=== PATIENT | male | born 1995 | race Caucasian/White ===

== ENCOUNTER → 2021-05-22 14:47 | Outpatient (BNVA) | payer MEDICAID, SELFPAY | PROVIDERS: PCP Internal Medicine; Referring Provider Internal Medicine; Visit Provider Surgery | DX: R19.8 Other specified symptoms and signs involving the digestive system and abdomen (principal); E66.01 Morbid (severe) obesity due to excess calories | CPT/HCPCS: 99212 ==

== ENCOUNTER 2021-08-13 08:20 | Emergency (ER) | payer MEDICAID, SELFPAY ==
[2021-08-13 08:21] VITALS: BP 144/88; PULSE 94; RESP 17; TEMP 36.6; O2SAT 98; BMI 50.8
[2021-08-13 08:59] LABS: Strep A Nucleic Acid Negative (Negative)
[2021-08-13 09:08] LABS: COVID-19 Test Negative (Negative); IDNOW Serial# 16C4AD1C; Influenza A Negative (Negative); Influenza B2 Negative (Negative)
--- NOTE | 2021-08-13 09:55 | ED.GENADULT ---
HPI - General Adult General Chief complaint: General Medical Stated complaint: Sore throat/Earache Time Seen by Provider: 08/13/21 08:39 Related Data Home Medications Medication Instructions Recorded Confirmed lisinopril 20 mg tablet 20 mg PO BID 05/22/21 05/22/21 lisinopril 20 1 tab PO DAILY 05/22/21 05/22/21 mg-hydrochlorothiazide 12.5 mg tablet sertraline 100 mg tablet 100 mg PO DAILY 05/22/21 05/22/21 Previous Rx's Medication Instructions Recorded amoxicillin 875 mg-potassium 1 tab PO BID 10 Days #20 tab 08/13/21 clavulanate 125 mg tablet Allergies Allergy/AdvReac Type Severity Reaction Status Date / Time No Known Allergies Allergy Unverified 05/22/21 15:55 [No Known Allergies*] Review of Systems Constitutional: Constitutional: Denies body ache(s), Denies chills, Denies fatigue, Denies fever(s), Denies headache(s), Denies malaise and Denies weakness Eyes: Eyes: Denies diplopia ENT: Denies vertigo, Denies dizziness, Reports otalgia, Denies headache(s), Reports post nasal drip, Denies sinus pain, Denies sinus pressure and Reports sore throat Cardiovascular: Cardiovascular: Denies chest pain, Denies syncope, Denies leg edema, Denies lightheadedness, Denies Loss of Consciousness, Denies palpitations and Denies dyspnea Respiratory: Respiratory: Denies chest congestion, Denies cough and Denies dyspnea Gastrointestinal: Gastrointestinal: Denies abdominal pain, Denies hematochezia, Denies constipation, Denies diarrhea and Denies vomiting Musculoskeletal: Musculoskeletal: Reports no additional musculoskeletal complaints Neurologic: Denies confusion, Denies vertigo, Denies dizziness, Denies syncope, Denies headache(s) and Denies weakness Psychiatric: Psychiatric: Denies anxiety, Denies confusion and Denies depression Endocrine: Endocrine: Denies fatigue and Denies palpitations PMFSH Past Medical History Medical History Hypertension Morbid obesity Umbilical discharge Surgical History No pertinent past surgical history Family History Family History Paternal Grandfather Prostate cancer Colon cancer Colon polyps Social History Social History (System 05/22/21 @ 15:55 by Hanane Santiago) Patient Tobacco Use Status: Never used Tobacco Advance Directives: No Advance Directives Information Provided: No Physical Exam ED Vital Signs: Vital Signs - 24 hr 08/13/21 08:21 Temperature 98 F Pulse Rate 94 Respiratory Rate 17 Blood Pressure 144/88 H Pulse Oximetry 98 BMI result Body Mass Index 50.8 Const General: no acute distress, alert and awake; No confusion Nutritional Appearance: obese Orientation/consciousness: patient oriented x3 and No confusion Limitations: no limitations HENMT Head: Yes normal to inspection, Yes normocephalic and Yes atraumatic Ears: hearing grossly normal bilaterally, EAC's normal, TM abnormal (Right) bulging on the right, erythematous and with loss of landmarks and unable to visualize TM (Cerumen impaction) on the left General nose exam: Normal external nose present and Normal nares present Face and sinus: Yes normal facial exam and Yes sinuses nontender Mouth: Normal oral and palatal mucosa present and moist mucous membranes Throat: Yes posterior oropharynx normal and Yes postnasal drainage Eyes Pupils: Equal, round and reactive pupils present EOM: EOMs intact bilaterally Neck Neck: Yes normal visual inspection, Yes full ROM, Yes no lymphadenopathy, Yes no meningeal signs, Yes trachea midline and Yes supple Resp Effort & Inspection: normal respiratory effort and able to speak in complete sentences Auscultation: clear to auscultation bilaterally, no crackles, no rales, no rhonchi and no wheezes Cardio Rate: regular rate Rhythm: regular rhythm Skin General skin exam: no rashes or lesions noted Neuro General: patient oriented x3, no meningeal signs and No confusion Cranial nerves: Yes Equal, round and reactive pupils present Extrem General: Yes normal to inspection, Yes full ROM and Yes capillary refill normal Psych Appearance: grossly normal Mental Status: mental status grossly normal Speech and movement: Normal speech and movement present Course Course Course Narrative: 25-year-old male presents with right ear pain and sore throat that started yesterday. On exam, patient has cerumen impaction left ear, has right TM erythema and bulging. Oropharynx shows mild erythema and postnasal drip. COVID, strep, flu all negative. Will treat right otitis media with Augmentin Counseled Tylenol and ibuprofen for pain. Gave return precautions, all patient's questions were answered. Medical Decision Making Lab Data Labs: Lab Results 08/13/21 08/13/21 08/13/21 Range/Units 08:41 08:41 08:41 COVID-19 ([facility]) Negative (Negative) COVID-19 Clin Com See Note Influenza Type A ([facility]) Negative (Negative) Influenza Type B ([facility]) Negative (Negative) Influenza A & B Note See Note S. pyogenes GrpA [facility] Negative (Negative) Discharge Plan Discharge Clinical Impression: Acute otitis media, right Patient Disposition: Home, Self-Care Instructions: Ear Infection (ED) Additional Instructions: Please take antibiotics as prescribed. Please alternate Tylenol and ibuprofen for pain. Please return to emergency room for any new or concerning symptoms. The Prescriptions: New amoxicillin-pot clavulanate 875-125 mg tablet 1 tab PO BID 10 Days Qty: 20 0RF No Action lisinopril-hydrochlorothiazide 20-12.5 mg tablet 1 tab PO DAILY 0RF sertraline 100 mg tablet 100 mg PO DAILY 0RF lisinopril 20 mg tablet 20 mg PO BID 0RF Interventions: ED Discharge Assessment Last Done: 08/13/21 10:10 Discharge Date/Time: 08/13/21 10:11
== END 2021-08-13 10:11 | disposition home or self-care (01) ==
PROVIDERS: Emergency Provider Emergency Medicine; PCP Internal Medicine
DX: H66.91 Otitis media, unspecified, right ear (principal); H92.01 Otalgia, right ear; J02.9 Acute pharyngitis, unspecified; Z20.822 Contact with and (suspected) exposure to COVID-19; Z79.899 Other long term (current) drug therapy
CPT/HCPCS: 87502; 87635; 87651; 99283

== ENCOUNTER 2022-06-07 11:16 | Emergency (ER) | payer MEDICAID, SELFPAY ==
--- NOTE | ~2022-06-07 | XR_ITS ---
EXAMINATION: XR CHEST CLINICAL INFORMATION: Chest pain. COMPARISON: 12/20/2016 chest radiographs. TECHNIQUE: 2 views of the chest were obtained. FINDINGS: No significant abnormality is noted involving the heart, lungs, mediastinum, bony thorax or soft tissues. XR/XR chest 2V IMPRESSION: No acute cardiopulmonary process.
--- NOTE | 2022-06-07 11:29 | ECG_ITS ---
Test Reason : chest pain Blood Pressure : / mmHG Vent. Rate : 088 BPM Atrial Rate : 088 BPM P-R Int : 158 ms QRS Dur : 086 ms QT Int : 330 ms P-R-T Axes : 053 -05 021 degrees QTc Int : 399 ms Normal sinus rhythm Normal ECG No previous ECGs available Referred By: Generic ED Physician Electronically Signed By:Kade Mcdaniel
[2022-06-07 11:43] VITALS: BP 155/83; PULSE 92; RESP 19; TEMP 36.6; O2SAT 98; BMI 52.0
--- NOTE | 2022-06-07 11:44 | ED_ITS ---
HPI - Chest Pain General Chief Complaint: Chest Pain <CECILIA Louis - Last Filed: 06/07/22 11:47> Stated Complaint: heart pain past few days. sent by DR <CECILIA Louis - Last Filed: 06/07/22 11:47> Time Seen by Provider: 06/07/22 16:35 <CECILIA Louis - Last Filed: 06/07/22 11:47> Source: patient <Ashwini Green NP - Last Filed: 06/07/22 17:43> Mode of arrival: ambulatory <Ashwini Green NP - Last Filed: 06/07/22 17:43> Limitations: no limitations <Ashwini Green NP - Last Filed: 06/07/22 17:43> History of Present Illness HPI narrative: 26-year-old male with a history of obesity, hypertension, anxiety presents the ER with complaints of left-sided chest pain intermittent for the last 3-4 days. Pain occurs at rest. Pain is sharp and lasts several seconds and then resolved. There is no associated vomiting, diaphoresis, dizziness, palpitati ons, cough, fever, shortness of breath, leg swelling or leg pain. No recent travel or sick contact. No family history of DVT, PE, sudden cardiac . <Ashwini Green NP - Last Filed: 06/07/22 17:43> Related Data Home Medications: Home Medications Medication Instructions Recorded Confirmed lisinopril 20 mg tablet 20 mg PO BID 05/22/21 05/22/21 lisinopril 20 1 tab PO DAILY 05/22/21 05/22/21 mg-hydrochlorothiazide 12.5 mg tablet sertraline 100 mg tablet 100 mg PO DAILY 05/22/21 05/22/21 Previous Rx's Medication Instructions Recorded amoxicillin 875 mg-potassium 1 tab PO BID 10 days #20 tabs 08/13/21 clavulanate 125 mg tablet <CECILIA Louis - Last Filed: 06/07/22 11:47> Allergies/Adverse Reactions: Allergies Allergy/AdvReac Type Severity Reaction Status Date / Time No Known Allergies Allergy Verified 06/07/22 11:48 [No Known Allergies*] <CECILIA Louis - Last Filed: 06/07/22 11:47> Review of Systems Review of Systems: Yes all other systems are reviewed and are negative <Ashwini Green NP - Last Filed: 06/07/22 17:43> Constitutional: Constitutional: Reports no additional constitutional complaints, Denies body ache(s), Denies chills, Denies fever(s), Denies headache(s) and Denies weakness <Ashwini Green STAFF DEVELOPMENT COORDINATOR RN - Last Filed: 06/07/22 17:43> Eyes: Eyes: Reports no additional eye complaints and Denies change in vision <Ashwini Green STAFF DEVELOPMENT COORDINATOR RN - Last Filed: 06/07/22 17:43> ENT: Reports system reviewed and no additional complaints, except as documented, Denies dizziness, Denies headache(s), Denies nasal congestion, Denies nasal discharge and Denies neck pain <Ashwini Green STAFF DEVELOPMENT COORDINATOR RN - Last Filed: 06/07/22 17:43> Cardiovascular: Cardiovascular: Reports no additional cardiovascular com plaints, Reports chest pain, Denies leg edema and Denies dyspnea <Ashwini Green STAFF DEVELOPMENT COORDINATOR RN - Last Filed: 06/07/22 17:43> Respiratory: Respiratory: Reports no additional respiratory complaints, Denies cough and Denies dyspnea <Ashwini Green STAFF DEVELOPMENT COORDINATOR RN - Last Filed: 06/07/22 17:43> Gastrointestinal: Gastrointestinal: Reports no additional gastrointestinal complaints, Denies abdominal pain, Denies diarrhea, Denies nausea and Denies vomiting <Ashwini Green STAFF DEVELOPMENT COORDINATOR RN - Last Filed: 06/07/22 17:43> Genitourinary: Genitourinary: Denies urinary incontinence <Ashwini Green STAFF DEVELOPMENT COORDINATOR RN - Last Filed: 06/07/22 17:43> Musculoskeletal: Musculoskeletal: Reports no additional musculoskeletal complaints, Denies back pain, Denies arthralgias, Denies joint swelling, Denies neck pain, Denies numbness and Denies tingling <Ashwini Green STAFF DEVELOPMENT COORDINATOR RN - Last Filed: 06/07/22 17:43> Integumentary/Breasts: Skin/Breast: Reports system reviewed and no additional complaints, except as docu and Denies rash <Ashwini Green STAFF DEVELOPMENT COORDINATOR RN - Last Filed: 06/07/22 17:43> Neurologic: Reports system reviewed and no additional complaints, except as documented, Denies Abnormal speech present, Denies dizziness, Denies headache(s), Denies numbness, Denies tingling and Denies weakness <Ashwini Green NP - Last Filed: 06/07/22 17:43> PMFSH Past Medical History Attestation statement: The following information was validated with the patient. <Ashwini Green NP - Last Filed: 06/07/22 17:43> Source: old records reviewed and nursing notes reviewed <Ashwini Green NP - Last Filed: 06/07/22 17:43> Medical History: Medical History Hypertension Morbid obesity Umbilical discharge <CECILIA Louis - Last Filed: 06/07/22 11:47> Surgical History: Surgical History No pertinent past surgical history <CECILIA Louis - Last Filed: 06/07/22 11:47> Family History Family History: Family History Paternal Grandfather Prostate cancer Colon cancer Colon polyps <CECILIA Louis - Last Filed: 06/07/22 11:47> Social History Social History: Social History Patient Tobacco Use Status: Never used Tobacco Advance Directives: No <CECILIA Louis - Last Filed: 06/07/22 11:47> Physical Exam Vital Signs: Vital Signs: Last Vital Signs Temp 98.2 F 06/07/22 15:41 Pulse 70 06/07/22 16:49 Resp 18 06/07/22 16:49 BP 150/82 H 06/07/22 16:00 Pulse Ox 96 06/07/22 16:49 O2 Del Method 06/07/22 16:49 BMI result Body Mass Index 52.0 <CECILIA Louis - Last Filed: 06/07/22 11:47> Vital Signs: Last Vital Signs Temp 98.2 F 06/07/22 15:41 Pulse 70 06/07/22 16:49 Resp 18 06/07/22 16:49 BP 150/82 H 06/07/22 16:00 Pulse Ox 96 06/07/22 16:49 O2 Del Method 06/07/22 16:49 BMI result Body Mass Index 52.0 <Ashwini Green STAFF DEVELOPMENT COORDINATOR RN - Last Filed: 06/07/22 17:43> Const: General: cooperative, healthy appearing, comfortable and no acute distress <Ashwini Green STAFF DEVELOPMENT COORDINATOR RN - Last Filed: 06/07/22 17:43> Orientation/consciousness: patient oriented x3 <Ashwini Green STAFF DEVELOPMENT COORDINATOR RN - Last Filed: 06/07/22 17:43> Limitations: no limitations <Ashwini Green STAFF DEVELOPMENT COORDINATOR RN - Last Filed: 06/07/22 17:43> HEENT: Head: Yes normal to inspection <Ashwini Green STAFF DEVELOPMENT COORDINATOR RN - Last Filed: 06/07/22 17:43> Ears: hearing grossly normal bilaterally <Ashwini Green STAFF DEVELOPMENT COORDINATOR RN - Last Filed: 06/07/22 17:43> General nose exam: Normal external nose present <Ashwini Green STAFF DEVELOPMENT COORDINATOR RN - Last Filed: 06/07/22 17:43> Face and sinus: Yes normal facial exam <Ashwini Green STAFF DEVELOPMENT COORDINATOR RN - Last Filed: 06/07/22 17:43> Mouth: Normal oral and palatal mucosa present <Ashwini Green STAFF DEVELOPMENT COORDINATOR RN - Last Filed: 06/07/22 17:43> Throat: Yes posterior oropharynx normal <Ashwini Green STAFF DEVELOPMENT COORDINATOR RN - Last Filed: 06/07/22 17:43> Eyes: General: appearance normal, both eyes and all related structures <Ashwini Green STAFF DEVELOPMENT COORDINATOR RN - Last Filed: 06/07/22 17:43> Pupils: Equal, round and reactive pupils present <Ashwini Green STAFF DEVELOPMENT COORDINATOR RN - Last Filed: 06/07/22 17:43> Neck: Neck: Yes normal visual inspection <Ashwini Green STAFF DEVELOPMENT COORDINATOR RN - Last Filed: 06/07/22 17:43> Chest: Chest palpation & inspection: normal inspection of the chest <Ashwini Green STAFF DEVELOPMENT COORDINATOR RN - Last Filed: 06/07/22 17:43> Resp: Effort & Inspection: normal respiratory effort <Ashwini Green STAFF DEVELOPMENT COORDINATOR RN - Last Filed: 06/07/22 17:43> Auscultation: clear to auscultation bilaterally <Ashwini Green, STAFF DEVELOPMENT COORDINATOR RN - Last Filed: 06/07/22 17:43> Cardio: Rate: regular rate <Ashwini Norma, STAFF DEVELOPMENT COORDINATOR RN - Last Filed: 06/07/22 17:43> Rhythm: regular rhythm <Ashwini Norma, STAFF DEVELOPMENT COORDINATOR RN - Last Filed: 06/07/22 17:43> Peripheral pulses: Peripheral pulses 2+ throughout <Ashwini Green, STAFF DEVELOPMENT COORDINATOR RN - Last Filed: 06/07/22 17:43> GI: Inspection: Yes normal to inspection <Ashwini Green, STAFF DEVELOPMENT COORDINATOR RN - Last Filed: 06/07/22 17:43> Palpation (GI): Soft to palpation and nontender <Ashwini Green, STAFF DEVELOPMENT COORDINATOR RN - Last Filed: 06/07/22 17:43> Auscultation: normal bowel sounds <Ashwini Norma, STAFF DEVELOPMENT COORDINATOR RN - Last Filed: 06/07/22 17:43> Back/Spine/Pelvis: Thoracic/Lumbar Spine: thoracic and lumbar spine normal to inspection <Ashwini Green, STAFF DEVELOPMENT COORDINATOR RN - Last Filed: 06/07/22 17:43> Skin: General skin exam: no rashes or lesions noted <Ashwini Green, STAFF DEVELOPMENT COORDINATOR RN - Last Filed: 06/07/22 17:43> Neuro: General: patient oriented x3, no focal motor deficits and normal sensation to monofilament <Ashwini Green, STAFF DEVELOPMENT COORDINATOR RN - Last Filed: 06/07/22 17:43> Cranial nerves: Yes Equal, round and reactive pupils present <Ashwini Green, STAFF DEVELOPMENT COORDINATOR RN - Last Filed: 06/07/22 17:43> Cognition (Neuro): normal cognition <Ashwini Norma, STAFF DEVELOPMENT COORDINATOR RN - Last Filed: 06/07/22 17:43> Speech: No Abnormal speech present <Ashwnii Norma, STAFF DEVELOPMENT COORDINATOR RN - Last Filed: 06/07/22 17:43> Gait exam (Neuro): Normal gait present <Ashwini Green NP - Last Filed: 06/07/22 17:43> Motor exam (neuro): 5/5 motor strength present throughout <Ashwini Green NP - Last Filed: 06/07/22 17:43> Extrem: General: Yes normal to inspection, Yes no pedal edema and Yes no calf tenderness <Ashwini Green NP - Last Filed: 06/07/22 17:43> Course Course Course Narrative: RME- 11:45 26yoM with a PMHx of HTN presenting to the ED with complaints of Left sided chest pain c associated SOB/DUNNE x 3-4 days with a dry intermittent cough. Called his PCP and was sent here. Denbies changes in viasion, N/V, jaw pain, paresthesias, palpitations, ABD pain, leg swelling. 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 No recent drug usage but reports used to used ton's of drugs . Denies recent travel. Plan: Labs, EKG, chest x-ray, COVID/RSV/flu swab. Patient will be sent back to the waiting room to be evaluated in the ED. <CECILIA Louis - Last Filed: 06/07/22 11:47> Reevaluation(s) Reevaluation #1: Labs are unremarkable. EKG and chest x-ray are normal. Viral testing is negative. Seems atypical for ACS. Patient will be discharged home with plan for follow-up outpatient with his primary care doctor. Reviewed worrisome signs and symptoms of when to return to the emergency room. Comfortable plan for discharge home. <Ashwini Green NP - Last Filed: 06/07/22 17:43> Medical Decision Making Medical Decision Making MDM Narrative: 26-year-old male here with intermittent left-sided chest pain with no other associated symptoms which occurs at rest and lasts several seconds and then self-resolved the last 3-4 days. On arrival stable vital signs. Lungs clear. Normal exam. Will obtain labs, EKG, chest x-ray, COVID screen <Ashwini Green NP - Last Filed: 06/07/22 17:43> Differential Diagnosis Differential Diagnoses: The differential diagnosis associated with the presentation includes <Ashwini Green NP - Last Filed: 06/07/22 17:43> Less likely ACS-atypical history of present illness/negative troponin and EKG Less likely PE with perc 0 Less likely aortic dissection with gradual onset Less likely pneumonia <Ashwini Green NP - Last Filed: 06/07/22 17:43> Lab Data MDM Lab Attestation statement: I reviewed the patient's lab results. <Ashwini Green NP - Last Filed: 06/07/22 17:43> Result Diagrams: 06/07/22 13:01 06/07/22 13:01 <CECILIA Louis - Last Filed: 06/07/22 11:47> Labs: Lab Results 06/07/22 06/07/22 06/07/22 Range/Units 13:01 13:01 13:01 WBC 13.8 H (4.8-10.8) X10*3/uL RBC 5.14 (4.60-5.80) X10*6/uL Hgb 14.2 (14.0-18.0) g/dl Hct 42.8 (42.0-52.0) % MCV 83.3 (80.0-98.0) fL MCH 27.6 (27.0-33.0) pg MCHC 33.2 (31.0-36.0) g/dl RDW 12.2 (11.0-16.0) % Plt Count 346 (160-400) X10*3/uL MPV 10.4 (9.4-12.4) fL Immature Gran % (Auto) 1.7 H (0.0-0.4) % Neut % (Auto) 69.6 (45-73) % Lymph % (Auto) 18.8 L (20-40) % [place] % (Auto) 7.0 (2-11) % Eos % (Auto) 2.2 (0-4) % Baso % (Auto) 0.7 (0-2) % Lymph # (Auto) 2.6 (1.2-4.9) X10*3/uL [place] # (Auto) 1.0 (0.1-1.2) X10*3/uL Eos # (Auto) 0.3 (0.0-0.4) X10*3/uL Baso # (Auto) 0.1 (0.0-0.2) X10*3/uL Abs Immat Gran (auto) 0.24 H (0.00-0.03) X10*3/uL Absolute Neuts (auto) 9.6 H (2.0-8.3) x10*3/uL Absolute Nucleated RBC 0.000 (0.0-0.012) X10*3/uL Nucleated RBC % (auto) 0.0 (0.0-0.2) /100WBC PT 12.4 (10.0-13.1) SEC INR 1.1 (0.9-1.1) Sodium 136 (135-145) mmol/L Potassium 5.0 (3.3-5.1) mmol/L Chloride 105 (96-108) mmol/L Carbon Dioxide 21 L (22-29) mmol/L Anion Gap 15 (12-20) BUN 16 (9-16) mg/dL Creatinine 0.97 (0.5-1.4) mg/dL Estim Creat Clear Calc 186.3 Estimated GFR > 60 Random Glucose 84 (60-115) mg/dL Calcium 9.3 (8.4-10.2) mg/dL Magnesium 1.9 (1.6-2.6) mg/dL Total Bilirubin 0.5 (0.0-1.0) mg/dL AST 26 (5-37) U/L ALT 39 (0-40) U/L Alkaline Phosphatase 81 (39-117) U/L Troponin I High Sens (<3.5-35.0) ng/L Total Protein 7.5 (6.5-8.0) g/dL Albumin 3.9 (3.5-5.0) g/dL Influenza Type A (PCR) (Negative) Influenza Type B (PCR) (Negative) RSV RNA Qual (PCR) (Negative) SARS-CoV-2 RNA (RT-PCR) (Negative) 06/07/22 06/07/22 Range/Units 13:01 13:01 WBC (4.8-10.8) X10*3/uL RBC (4.60-5.80) X10*6/uL Hgb (14.0-18.0) g/dl Hct (42.0-52.0) % MCV (80.0-98.0) fL MCH (27.0-33.0) pg MCHC (31.0-36.0) g/dl RDW (11.0-16.0) % Plt Count (160-400) X10*3/uL MPV (9.4-12.4) fL Immature Gran % (Auto) (0.0-0.4) % Neut % (Auto) (45-73) % Lymph % (Auto) (20-40) % [place] % (Auto) (2-11) % Eos % (Auto) (0-4) % Baso % (Auto) (0-2) % Lymph # (Auto) (1.2-4.9) X10*3/uL [place] # (Auto) (0.1-1.2) X10*3/uL Eos # (Auto) (0.0-0.4) X10*3/uL Baso # (Auto) (0.0-0.2) X10*3/uL Abs Immat Gran (auto) (0.00-0.03) X10*3/uL Absolute Neuts (auto) (2.0-8.3) x10*3/uL Absolute Nucleated RBC (0.0-0.012) X10*3/uL Nucleated RBC % (auto) (0.0-0.2) /100WBC PT (10.0-13.1) SEC INR (0.9-1.1) Sodium (135-145) mmol/L Potassium (3.3-5.1) mmol/L Chloride (96-108) mmol/L Carbon Dioxide (22-29) mmol/L Anion Gap (12-20) BUN (9-16) mg/dL Creatinine (0.5-1.4) mg/dL Estim Creat Clear Calc Estimated GFR Random Glucose (60-115) mg/dL Calcium (8.4-10.2) mg/dL Magnesium (1.6-2.6) mg/dL Total Bilirubin (0.0-1.0) mg/dL AST (5-37) U/L ALT (0-40) U/L Alkaline Phosphatase (39-117) U/L Troponin I High Sens < 3.5 (<3.5-35.0) ng/L Total Protein (6.5-8.0) g/dL Albumin (3.5-5.0) g/dL Influenza Type A (PCR) NEGATIVE (Negative) Influenza Type B (PCR) NEGATIVE (Negative) RSV RNA Qual (PCR) NEGATIVE (Negative) SARS-CoV-2 RNA (RT-PCR) NEGATIVE (Negative) <CECILIA Louis - Last Filed: 06/07/22 11:47> Lab Results 06/07/22 06/07/22 06/07/22 Range/Units 13:01 13:01 13:01 WBC 13.8 H (4.8-10.8) X10*3/uL RBC 5.14 (4.60-5.80) X10*6/uL Hgb 14.2 (14.0-18.0) g/dl Hct 42.8 (42.0-52.0) % MCV 83.3 (80.0-98.0) fL MCH 27.6 (27.0-33.0) pg MCHC 33.2 (31.0-36.0) g/dl RDW 12.2 (11.0-16.0) % Plt Count 346 (160-400) X10*3/uL MPV 10.4 (9.4-12.4) fL Immature Gran % (Auto) 1.7 H (0.0-0.4) % Neut % (Auto) 69.6 (45-73) % Lymph % (Auto) 18.8 L (20-40) % [place] % (Auto) 7.0 (2-11) % Eos % (Auto) 2.2 (0-4) % Baso % (Auto) 0.7 (0-2) % Lymph # (Auto) 2.6 (1.2-4.9) X10*3/uL [place] # (Auto) 1.0 (0.1-1.2) X10*3/uL Eos # (Auto) 0.3 (0.0-0.4) X10*3/uL Baso # (Auto) 0.1 (0.0-0.2) X10*3/uL Abs Immat Gran (auto) 0.24 H (0.00-0.03) X10*3/uL Absolute Neuts (auto) 9.6 H (2.0-8.3) x10*3/uL Absolute Nucleated RBC 0.000 (0.0-0.012) X10*3/uL Nucleated RBC % (auto) 0.0 (0.0-0.2) /100WBC PT 12.4 (10.0-13.1) SEC INR 1.1 (0.9-1.1) Sodium 136 (135-145) mmol/L Potassium 5.0 (3.3-5.1) mmol/L Chloride 105 (96-108) mmol/L Carbon Dioxide 21 L (22-29) mmol/L Anion Gap 15 (12-20) BUN 16 (9-16) mg/dL Creatinine 0.97 (0.5-1.4) mg/dL Estim Creat Clear Calc 186.3 Estimated GFR > 60 Random Glucose 84 (60-115) mg/dL Calcium 9.3 (8.4-10.2) mg/dL Magnesium 1.9 (1.6-2.6) mg/dL Total Bilirubin 0.5 (0.0-1.0) mg/dL AST 26 (5-37) U/L ALT 39 (0-40) U/L Alkaline Phosphatase 81 (39-117) U/L Troponin I High Sens (<3.5-35.0) ng/L Total Protein 7.5 (6.5-8.0) g/dL Albumin 3.9 (3.5-5.0) g/dL Influenza Type A (PCR) (Negative) Influenza Type B (PCR) (Negative) RSV RNA Qual (PCR) (Negative) SARS-CoV-2 RNA (RT-PCR) (Negative) 06/07/22 06/07/22 Range/Units 13:01 13:01 WBC (4.8-10.8) X10*3/uL RBC (4.60-5.80) X10*6/uL Hgb (14.0-18.0) g/dl Hct (42.0-52.0) % MCV (80.0-98.0) fL MCH (27.0-33.0) pg MCHC (31.0-36.0) g/dl RDW (11.0-16.0) % Plt Count (160-400) X10*3/uL MPV (9.4-12.4) fL Immature Gran % (Auto) (0.0-0.4) % Neut % (Auto) (45-73) % Lymph % (Auto) (20-40) % [place] % (Auto) (2-11) % Eos % (Auto) (0-4) % Baso % (Auto) (0-2) % Lymph # (Auto) (1.2-4.9) X10*3/uL [place] # (Auto) (0.1-1.2) X10*3/uL Eos # (Auto) (0.0-0.4) X10*3/uL Baso # (Auto) (0.0-0.2) X10*3/uL Abs Immat Gran (auto) (0.00-0.03) X10*3/uL Absolute Neuts (auto) (2.0-8.3) x10*3/uL Absolute Nucleated RBC (0.0-0.012) X10*3/uL Nucleated RBC % (auto) (0.0-0.2) /100WBC PT (10.0-13.1) SEC INR (0.9-1.1) Sodium (135-145) mmol/L Potassium (3.3-5.1) mmol/L Chloride (96-108) mmol/L Carbon Dioxide (22-29) mmol/L Anion Gap (12-20) BUN (9-16) mg/dL Creatinine (0.5-1.4) mg/dL Estim Creat Clear Calc Estimated GFR Random Glucose (60-115) mg/dL Calcium (8.4-10.2) mg/dL Magnesium (1.6-2.6) mg/dL Total Bilirubin (0.0-1.0) mg/dL AST (5-37) U/L ALT (0-40) U/L Alkaline Phosphatase (39-117) U/L Troponin I High Sens < 3.5 (<3.5-35.0) ng/L Total Protein (6.5-8.0) g/dL Albumin (3.5-5.0) g/dL Influenza Type A (PCR) NEGATIVE (Negative) Influenza Type B (PCR) NEGATIVE (Negative) RSV RNA Qual (PCR) NEGATIVE (Negative) SARS-CoV-2 RNA (RT-PCR) NEGATIVE (Negative) <Ashwini Green NP - Last Filed: 06/07/22 17:43> Independent Interpretation I performed an independent interpretation of an: EKG and Plain X-Ray <Ashwini Green NP - Last Filed: 06/07/22 17:43> Interpretation: Independently reviewed the patients EKG which shows normal sinus rhythm, normal OK, normal QRS Independently reviewed the patient's chest x-ray and agree with radiologist's report <Ashwini Green NP - Last Filed: 06/07/22 17:43> Radiology Impression Discussion of test interpretation with radiology: I have reviewed the radiologist's reading. <Ashwini Green NP - Last Filed: 06/07/22 17:43> Radiologist Impression: [address] [address] XRay Report Signed Patient: Mark Díaz MR#: [id number] : 1995 Acct:[id number] Age/Sex: 26 / M ADM Date: 06/07/22 Loc: .ED Attending Dr: Ordering Physician: Fannie Saxena Date of Service: 06/07/22 Procedure(s): XR chest 2V Accession Number(s): [id number] cc: Fannie Saxena~ EXAMINATION: XR CHEST CLINICAL INFORMATION: Chest pain. COMPARISON: 12/20/2016 chest radiographs. TECHNIQUE: 2 views of the chest were obtained. FINDINGS: No significant abnormality is noted involving the heart, lungs, mediastinum, bony thorax or soft tissues. XR/XR chest 2V IMPRESSION: No acute cardiopulmonary process. <Ashwini Green NP - Last Filed: 06/07/22 17:43> Discharge Plan Discharge Clinical Impression: Chest pain <CECILIA Louis - Last Filed: 06/07/22 11:47> Patient Disposition: Home, Self-Care <CECILIA Louis - Last Filed: 06/07/22 11:47> Instructions: Chest Pain (DC) <CECILIA Louis - Last Filed: 06/07/22 11:47> Additional Instructions: Your blood work, EKG, chest X-ray are all very reassuring Please follow-up with her primary care doctor as discussed Return for worsening symptoms <CECILIA Louis - Last Filed: 06/07/22 11:47> Prescriptions: No Action amoxicillin-pot clavulanate 875-125 mg tablet 1 tab PO BID 10 Days Qty: 20 0RF lisinopril-hydrochlorothiazide 20-12.5 mg tablet 1 tab PO DAILY sertraline 100 mg tablet 100 mg PO DAILY lisinopril 20 mg tablet 20 mg PO BID <CECILIA Louis - Last Filed: 06/07/22 11:47> Referrals: Segun Koroma MD [Primary Care Provider] - 1 week <CECILIA Louis - Last Filed: 06/07/22 11:47> Interventions: ED Discharge Assessment Last Done: 06/07/22 17:36 <CECILIA Louis - Last Filed: 06/07/22 11:47> Discharge Date/Time: 06/07/22 17:37 <CECILIA Louis - Last Filed: 06/07/22 11:47>
[2022-06-07 13:07] LABS: MANUAL DIFF FLAG NO
[2022-06-07 13:09] LABS: Basophils Absolute Auto 0.1 X10*3/uL (0.0-0.2); Basophils Percent Auto 0.7 % (0-2); Eosinophils Absolute Auto 0.3 X10*3/uL (0.0-0.4); Eosinophils Percent Auto 2.2 % (0-4); Hematocrit 42.8 % (42.0-52.0); Hemoglobin 14.2 g/dl (14.0-18.0); Imm Gran Abs Auto 0.24 X10*3/uL (0.00-0.03); Imm Gran Pct Auto 1.7 % (0.0-0.4); Lymphocytes Absolute Auto 2.6 X10*3/uL (1.2-4.9); Lymphocytes Percent Auto 18.8 % (20-40); Mean Corpuscular HGB Conc 33.2 g/dl (31.0-36.0); Mean Corpuscular Hemoglobin 27.6 pg (27.0-33.0); Mean Corpuscular Volume 83.3 fL (80.0-98.0); Mean Platelet Volume 10.4 fL (9.4-12.4); Neutrophils Absolute Auto 9.6 x10*3/uL (2.0-8.3); Neutrophils Percent Auto 69.6 % (45-73); Platelet Count 346 X10*3/uL (160-400); Red Blood Count 5.14 X10*6/uL (4.60-5.80); Red Cell Distribution Width 12.2 % (11.0-16.0); White Blood Count 13.8 X10*3/uL (4.8-10.8)
[2022-06-07 13:22] LABS: INTERNATIONAL NORM RATIO 1.1 (0.9-1.1); Prothrombin Time 12.4 SEC (10.0-13.1)
[2022-06-07 13:39] LABS: Alanine Aminotransferase 39 U/L (0-40); Albumin Level 3.9 g/dL (3.5-5.0); Alkaline Phosphatase 81 U/L (39-117); Anion Gap 15 (12-20); Aspartate Amino Transferase 26 U/L (5-37); Bilirubin Total 0.5 mg/dL (0.0-1.0); Blood Urea Nitrogen 16 mg/dL (9-16); Calcium 9.3 mg/dL (8.4-10.2); Carbon Dioxide 21 mmol/L (22-29); Chloride 105 mmol/L (96-108); Creatinine Clr Calc Pharmacy 186.3; Estimated Glomerular Filt Rate > 60; Glucose Random 84 mg/dL (60-115); Magnesium 1.9 mg/dL (1.6-2.6); Sodium 136 mmol/L (135-145); Total Protein 7.5 g/dL (6.5-8.0)
[2022-06-07 13:46] LABS: Troponin-I High Sensitivity < 3.5 ng/L (<3.5-35.0)
[2022-06-07 14:00] LABS: Influenza A PCR NEGATIVE (Negative); Influenza B PCR NEGATIVE (Negative); Resp Syncy Virus RNA Qual PCR NEGATIVE (Negative); SARS COV2 PCR INHOUSE NEGATIVE (Negative)
[2022-06-07 15:41] VITALS: BP 153/85; PULSE 82; RESP 18; TEMP 36.8; O2SAT 97
[2022-06-07 16:00] VITALS: BP 150/82; PULSE 96; RESP 18; O2SAT 97
--- NOTE | 2022-06-07 16:02 | PC.NURSE ---
pt resting on stretcher reports 6/10 chest pain, pressure like x3 days. Pt reports I have not been eating like I should recently and I'm not sure exactly what is going on . Pt denies change in pain on inspiration/expiration.
[2022-06-07 16:42] VITALS: PULSE 78
[2022-06-07 16:49] VITALS: PULSE 70; RESP 18; O2SAT 96
== END 2022-06-07 17:37 | disposition home or self-care (01) ==
PROVIDERS: Physician Assistant Medical; Emergency Provider Emergency Medicine; PCP Internal Medicine
DX: R07.89 Other chest pain (principal); F41.9 Anxiety disorder, unspecified; I10 Essential (primary) hypertension; Z20.822 Contact with and (suspected) exposure to COVID-19; Z20.828 Contact with and (suspected) exposure to other viral communicable diseases; Z79.899 Other long term (current) drug therapy
CPT/HCPCS: 0241U; 71046; 80053; 83735; 84484; 85025; 85610; 93005; 99283; 99284

== ENCOUNTER 2022-10-20 10:17 | Emergency (ER) | payer MEDICAID, SELFPAY ==
[2022-10-20 10:26] VITALS: BP 133/76; PULSE 82; RESP 18; TEMP 36.6; O2SAT 98; BMI 50.2
--- NOTE | 2022-10-20 11:33 | PC.NURSE ---
pt reports left lower quadrant pain since yesterday. pt reports that they urinate several times about 15 times pt denies other symptoms, no nausea, vomiting. no shortness of breath. No problem urinating
--- NOTE | 2022-10-20 11:34 | ED.GENADULT ---
HPI - General Adult General Chief complaint: Abdominal Pain Stated complaint: pain lower L abd Time Seen by Provider: 10/20/22 11:34 Source: patient Mode of arrival: ambulatory Limitations: no limitations History of Present Illness HPI narrative: Patient is a 27 year old assigned male at with a history of HTN presenting to the emergency department today with left lower quadrant abdominal pain. Patient states that yesterday he began having left lower quadrant abdominal pain that is worse with palpation and movement. Patient denies any dizziness, lightheadedness, nausea, vomiting, fever, chills, blurry vision, double vision, loss of vision, chest pain, difficulty breathing, shortness of breath, back pain, night sweats, pain with urination, increased urinary frequency, increased urinary urgency, blood in his urine or stool, syncope or a near syncopal episode, recent trauma or falls, bowel incontinence, bladder incontinence, bowel retention, bladder retention, or any other complaints at this time. Onset (ago): day(s) (1) Location: abdomen Radiation: non-radiation Severity: mild Severity scale (1-10): 3 Quality: aching and dull Pain Consistency: constant Relieving factors: none Exacerbating factors: movement Associated symptoms: denies other symptoms Treatments prior to arrival: none Related Data Home Medications Medication Instructions Recorded Confirmed lisinopril 20 mg tablet 20 mg PO BID 05/22/21 05/22/21 lisinopril 20 1 tab PO DAILY 05/22/21 05/22/21 mg-hydrochlorothiazide 12.5 mg tablet sertraline 100 mg tablet 100 mg PO DAILY 05/22/21 05/22/21 Previous Rx's Medication Instructions Recorded amoxicillin 875 mg-potassium 1 tab PO BID 10 days #20 tabs 08/13/21 clavulanate 125 mg tablet Allergies Allergy/AdvReac Type Severity Reaction Status Date / Time No Known Allergies Allergy Verified 10/20/22 10:25 [No Known Allergies*] Review of Systems Constitutional: Constitutional: Reports no additional constitutional complaints, Denies chills, Denies fever(s) and Denies night sweats Eyes: Eyes: Reports no additional eye complaints, Denies blurry vision, Denies change in vision, Denies diplopia, Denies eye discharge, Denies loss of vision and Denies eye pain ENT: Denies dizziness Cardiovascular: Cardiovascular: Reports no additional cardiovascular complaints, Denies chest pain, Denies lightheadedness, Denies Loss of Consciousness and Denies dyspnea Respiratory: Respiratory: Reports no additional respiratory complaints and Denies dyspnea Gastrointestinal: Gastrointestinal: Reports no additional gastrointestinal complaints, Reports abdominal pain, Denies melena, Denies hematochezia, Denies change in bowel habits and Denies change in stool character Genitourinary: Genitourinary: Reports no additional male genitourinary complaints, Denies hematuria, Denies oliguria, Denies difficulty urinating, Denies dysuria, Denies urinary frequency, Denies urinary hesitancy, Denies urinary incontinence and Denies urinary urgency Musculoskeletal: Musculoskeletal: Reports no additional musculoskeletal complaints, Denies numbness and Denies tingling Neurologic: Denies dizziness, Denies loss of vision, Denies numbness and Denies tingling Psychiatric: Psychiatric: Reports no additional psychiatric complaints Endocrine: Endocrine: Reports no additional endocrine complaints Hematologic/Lymphatic: Hematologic/Lymphatic: Reports no additional hematologic/lymphatic complaints Allergic/Immunologic: Allergic/Immunologic: Reports no additional allergic/immunologic complaints PMFSH Past Medical History Attestation statement: The following information was validated with the patient. Source: old records reviewed and nursing notes reviewed Medical History Hypertension Morbid obesity Umbilical discharge Surgical History No pertinent past surgical history Family History Family History Paternal Grandfather Prostate cancer Colon cancer Colon polyps Social History Social History Alcohol intake: never Patient Tobacco Use Status: Never used Tobacco Smoked in Last 30 Days: No Use of substances other than those prescribed or required for medical reasons: No Advance Directives: No Physical Exam ED Vital Signs: Vital Signs - 24 hr 10/20/22 10:26 Temperature 98 F Pulse Rate 82 Respiratory Rate 18 Blood Pressure 133/76 Pulse Oximetry 98 Oxygen Delivery Method Room Air BMI result Body Mass Index 50.2 Const General: cooperative, no acute distress, alert and awake Nutritional Appearance: well nourished Orientation/consciousness: patient oriented x3 Limitations: no limitations HENMT Head: Yes normal to inspection and Yes atraumatic Ears: hearing grossly normal bilaterally and external ears normal General nose exam: Normal external nose present, no nasal discharge noted and no epistaxis Face and sinus: Yes normal facial exam, No abrasion and No laceration Mouth: Normal oral and palatal mucosa present, no drooling and no muffled voice Eyes General: appearance normal, both eyes and all related structures Periorbital: periorbital findings normal Eyelids: Yes eyelids normal Conjunctivae: conjunctivae normal Pupils: Equal, round and reactive pupils present EOM: EOMs intact bilaterally Neck Neck: Yes normal visual inspection, Yes full ROM and Yes no lymphadenopathy Chest Chest palpation & inspection: normal inspection of the chest Resp Effort & Inspection: normal respiratory effort and able to speak in complete sentences GI Inspection: Yes normal to inspection Palpation (GI): Soft to palpation, not firm, nontender, no guarding and not rigid Neuro General: patient oriented x3 and moves all extremities Cranial nerves: Yes Equal, round and reactive pupils present Cognition (Neuro): normal cognition Motor exam (neuro): 5/5 motor strength present throughout Sensory Exam: Normal double simultaneous stimulation for sensation Coordination: [id number] test normal Extrem General: Yes normal to inspection, Yes full ROM and Yes capillary refill normal Psych Appearance: grossly normal Mental Status: mental status grossly normal Affect: normal affect Attitude: cooperative Thought process: Normal thought process present Thought content: Normal thought content present Insight: Good insight present (Psych) Medical Decision Making Medical Decision Making MDM Narrative: Patient is a 27 year old assigned male at with a history of HTN presenting to the emergency department today with left lower quadrant abdominal pain. Patient's physical exam was unremarkable. Patient's blood work was unremarkable. Patient's urine showed blood but was otherwise unremarkable. Given the patient's physical exam and urine findings, the patient likely had a kidney stone that passed. I explained my physical exam findings as well as all test results to the patient. I answered all questions asked by the patient. Patient was offered pain medication but refused stating that he was anxious about medications and does not want to take medication he does not need. I stressed the importance of the patient taking his medication as prescribed. I stressed the importance of the patient following up with his primary care provider. I stressed the importance of the patient returning to the emergency department immediately if his symptoms were to worsen or if he were to develop any dizziness, shortness of breath, difficulty breathing, chest pain, blurry vision, loss of vision, nausea, vomiting, abdominal pain, fever, chills, back pain, or any other complaints. Patient verbalized agreement and understanding with this treatment plan and discharge. Differential Diagnosis Differential Diagnoses: The differential diagnosis associated with the presentation includes Kidney stone Left lower abdominal pain Left flank pain Admission/Observation Consideration of admission/observation: Escalation of care including admission/observation considered Patient would have been admitted to the hospital had his work up had any findings where hospital admission was appropriate and his clinical presentation warranted hospital admission. Lab Data [facility] Lab Attestation statement: I reviewed the patient's lab results. My interpretation of these studies and their corresponding values is that they are grossly normal with the exception of blood in the urine as explained in the [facility] portion of this chart. 10/20/22 10:40 10/20/22 10:40 Labs: Lab Results 10/20/22 10/20/22 10/20/22 Range/Units 10:40 10:40 10:40 WBC 13.1 H (4.8-10.8) X10*3/uL RBC 5.14 (4.60-5.80) X10*6/uL Hgb 14.2 (14.0-18.0) g/dl Hct 43.3 (42.0-52.0) % MCV 84.2 (80.0-98.0) fL MCH 27.6 (27.0-33.0) pg MCHC 32.8 (31.0-36.0) g/dl RDW 12.2 (11.0-16.0) % Plt Count 315 (160-400) X10*3/uL MPV 10.3 (9.4-12.4) fL Immature Gran % (Auto) 1.5 H (0.0-0.4) % Neut % (Auto) 72.7 (45-73) % Lymph % (Auto) 18.1 L (20-40) % [place] % (Auto) 4.6 (2-11) % Eos % (Auto) 2.6 (0-4) % Baso % (Auto) 0.5 (0-2) % Lymph # (Auto) 2.4 (1.2-4.9) X10*3/uL [place] # (Auto) 0.6 (0.1-1.2) X10*3/uL Eos # (Auto) 0.3 (0.0-0.4) X10*3/uL Baso # (Auto) 0.1 (0.0-0.2) X10*3/uL Abs Immat Gran (auto) 0.20 H (0.00-0.03) X10*3/uL Absolute Neuts (auto) 9.5 H (2.0-8.3) x10*3/uL Absolute Nucleated RBC 0.000 (0.0-0.012) X10*3/uL Nucleated RBC % (auto) 0.0 (0.0-0.2) /100WBC Sodium 140 (135-145) mmol/L Potassium 4.4 (3.3-5.1) mmol/L Chloride 106 (96-108) mmol/L Carbon Dioxide 25 (22-29) mmol/L Anion Gap 13 (12-20) BUN 18 H (9-16) mg/dL Creatinine 0.99 (0.5-1.4) mg/dL Estim Creat Clear Calc 177.0 Estimated GFR > 60 Random Glucose 151 H (60-115) mg/dL Calcium 9.8 (8.4-10.2) mg/dL Urine Color Yellow Urine Appearance Clear Urine pH 5.5 (5.0-9.0) Ur Specific [place] 1.020 (1.005-1.025) Urine Protein 100 (2+) H (Neg-Trace) mg/dL Urine Glucose (UA) Negative (Negative) mg/dL Urine Ketones Negative (Negative) mg/dL Urine Blood Trace H (Negative) Urine Nitrite Negative (Negative) Ur Leukocyte Esterase Negative (Negative) Urine RBC 0-2 (0-2) /HPF Urine WBC 0-5 (0-5) /HPF Ur Squamous Epith Cells 0-2 (0-2) /HPF Urine Bacteria None Seen (None Seen) Hyaline Casts 0-2 (0-2) /LPF Tests considered The following testing was considered but not selected: CT scan was considered however, the patient's current clinical presentation and test results did not warrant further imaging. Prescription Management I considered prescription management with: Pain Medication (I offered the patient pain medication and he declined, as noted in the MDM portion of this chart. ) Chronic Conditions Patient?s care impacted by: Hypertension Discharge Plan Discharge Clinical Impression: Abdominal pain Patient Disposition: Home, Self-Care Instructions: Kidney Stones (ED), Abdominal Pain (ED), Flank Pain (ED) Additional Instructions: Follow up with your primary care provider. Return to the emergency department immediately if your symptoms worsen or if you develop any dizziness, shortness of breath, difficulty breathing, chest pain, blurry vision, loss of vision, nausea, vomiting, abdominal pain, fever, chills, back pain, or any other complaints. Prescriptions: No Action amoxicillin-pot clavulanate 875-125 mg tablet 1 tab PO BID 10 Days Qty: 20 0RF lisinopril-hydrochlorothiazide 20-12.5 mg tablet 1 tab PO DAILY sertraline 100 mg tablet 100 mg PO DAILY lisinopril 20 mg tablet 20 mg PO BID Referrals: Segun Koroma MD [Primary Care Provider] - Print Language: Urdu
== END 2022-10-20 11:53 | disposition home or self-care (01) ==
PROVIDERS: Emergency Provider Emergency Medicine Emergency Medical Services; PCP Internal Medicine
DX: R10.32 Left lower quadrant pain (principal); I10 Essential (primary) hypertension; E66.01 Morbid (severe) obesity due to excess calories; Z68.43 Body mass index [BMI] 50.0-59.9, adult; Z79.899 Other long term (current) drug therapy
CPT/HCPCS: 36415; 80048; 81001; 85025; 99283; 99284

== ENCOUNTER 2023-06-24 10:32 | Outpatient (REF) | payer MEDICAID, SELFPAY ==
[2023-06-24 16:37] LABS: CT PCR NOT DETECTED (Not Detect.); NG PCR NOT DETECTED (Not Detect.)
[2023-06-25 07:57] LABS: HIV AB/AG Nonreactive (Nonreactive); HIV Num 1 0.05 S/CO (0.00-0.99)
[2023-06-25 14:59] LABS: HCV Log PCR <1.18 NOT DETECTED Log IU/mL (NOT DETECTED); HepC Viral Load <15 NOT DETECTED IU/mL (NOT DETECTED)
[2023-06-26 07:09] LABS: RPR Rapid Plasma Reagin NON-REACTIVE (NON-REACTIVE)
== END 2023-06-24 10:33 | disposition home or self-care (01) ==
LOC: HO.CHCLDS 10:32
PROVIDERS: Visit Provider Registered Nurse
DX: Z11.3 Encounter for screening for infections with a predominantly sexual mode of transmission (principal); Z11.4 Encounter for screening for human immunodeficiency virus [HIV]
CPT/HCPCS: 0353U; 36415; 86592; 87389; 87522; 87661

== ENCOUNTER 2023-07-03 14:05 | Outpatient (REF) | payer MEDICAID, SELFPAY | END 2023-07-03 14:06 | disposition home or self-care (01) | LOC: HO.LNP 14:05 | PROVIDERS: PCP Internal Medicine; Visit Provider Surgery | DX: D23.5 Other benign neoplasm of skin of trunk (principal) | CPT/HCPCS: 11403; 88304; 88305; 99202 ==

== ENCOUNTER 2023-07-03 14:05 | Outpatient (AMB) | payer MEDICAID, SELFPAY ==
--- NOTE | 2023-07-03 14:06 | MHC.OFFVIS ---
Intake Vital Signs 07/03/23 14:09 Height 6 ft Weight 380 lb BMI 51.5 BP 133/77 Blood Pressure Location Rt brachial Position Sitting Pulse 108 H Intake Visit Reasons: subcutaneous mass right side of the back Intake Note: Patient referred for mass on Rt upper back. Present for yrs. Patient c/o: irritated. Denies itch, pain, oozing. Data Security Analyst Required: No Accompanied by: Self / Same As Patient Allergies dapagliflozin [From [facility]] Adverse Reaction (Mild, Verified 07/03/23 14:11) itchy bumps on ears Medication List - Last Reconciled 07/03/23 by Rohan Bhandari MD lisinopril 20 mg PO BID lisinopril-hydrochlorothiazide 20-12.5 mg 1 tab PO DAILY sertraline 100 mg PO DAILY HPI HPI Comments History of Present Illness Details Patient presents for evaluation of a right flank/back mass. He has had this many years time. He thinks his increasing in size and become more symptomatic. He would like to have removed. He has no such lesions elsewhere. Chart was reviewed and patient evaluated [facility] Medical History Umbilical discharge Hypertension Morbid obesity Surgical History No pertinent past surgical history Family History Paternal Grandfather Prostate cancer Colon cancer Colon polyps Social History Alcohol intake: never Patient Tobacco Use Status: Never used Tobacco Physical Exam Vital Signs: Last Vital Signs Pulse 108 H 07/03/23 14:09 BP 133/77 07/03/23 14:09 BMI result Body Mass Index 51.5 Skin Other: Proximally 3 x 2 cm right mid flank mask clinically consistent with a dermatofibroma. Office Procedures Excision Details: Risks, benefits, alternatives of excision of right flank 3 x 2 cm skin lesion reviewed with the patient included but not limited to bleeding, infection, recurrence, numbness, pain, scarring the patient was to proceed. Consent was signed. All questions answered. After appropriate positioning, patient underwent 1% lidocaine and Betadine prep and a transverse by elliptical incision of of lesion in question measuring approximately 3 x 2 cm was uneventfully performed. Specimen sent to pathology. Wounds irrigated, secured hemostasis, and closed using a running subcuticular 3-0 Vicryl suture followed by Steri-Strips. Patient tolerated procedure well. 00372-[id number]/arms/legs 2.1-3cm Procedure code (CPT) selection complete Office Meds lidocaine 1 %-epinephrine 1:100,000 injection solution Performing Provider: Rohan Bhandari MD Performing Location: [facility] Administered by: Rohan Bhandari MD on 07/03/23 14:40 Dose Route Admin Location Dispensed Lot Number Expiration Date [facility] [employer] 20 mL Infiltration 20 mL Assessment & Plan Assessment & Plan (1) Dermatofibroma of back: Code(s): D23.5 - Other benign neoplasm of skin of trunk Plan Patient has been given very specific local instructions including avoiding strenuous activities, may shower in 2 days, ice to wound periodically today and tomorrow and he will see me as directed or p.r.n.. Orders: Orders Surgical Today D23.9 - Other benign neoplasm of skin, unspecified AMB Excision Today D23.5 - Other benign neoplasm of skin of trunk Coding Level of Care Code New Pt Level 5 (34421) Diagnoses Dermatofibroma of back D23.5 CPT Codes Trunk/Arms/Legs - CPT: 44073-rqpyt/arms/legs 2.1-3cm ([id number])
[2023-07-03 14:09] VITALS: BP 133/77; PULSE 108; BMI 51.5
== END 2023-07-03 14:45 | disposition home or self-care (01) ==
PROVIDERS: PCP Internal Medicine; Visit Provider Surgery
DX: D23.5 Other benign neoplasm of skin of trunk (principal)
CPT/HCPCS: 11403; 99204

== ENCOUNTER 2023-07-15 12:51 | Outpatient (AMB) | payer MEDICAID, SELFPAY ==
--- NOTE | 2023-07-15 12:56 | MHC.OFFVIS ---
Intake Vital Signs 07/15/23 13:01 Height 6 ft Weight 380 lb 6 oz BMI 51.6 BP 151/96 H Blood Pressure Location Lt brachial Position Sitting Pulse 111 H Intake Visit Reasons: f/u excision of back Intake Note: Patient is seen in office for post op assessment post excision of back cyst. Pt c/o: bruising around the area, denies any other concerns Global Account Director Required: No Accompanied by: Self / Same As Patient Allergies dapagliflozin [From [facility]] Adverse Reaction (Mild, Verified 07/03/23 14:11) itchy bumps on ears HPI HPI Comments History of Present Illness Details Patient presents for follow-up. He has no wound issues or complaints. Pathology is benign [facility] Medical History (Updated 07/03/23 @ 14:39 by Rohan Bhandari MD) Umbilical discharge Hypertension Morbid obesity Surgical History Hx of surgical procedure (07/03/23) No pertinent past surgical history Family History Paternal Grandfather Prostate cancer Colon cancer Colon polyps Social History Alcohol intake: never Patient Tobacco Use Status: Never used Tobacco Physical Exam Vital Signs: Last Vital Signs Pulse 111 H 07/15/23 13:01 BP 151/96 H 07/15/23 13:01 BMI result Body Mass Index 51.6 Back/Spine/Pelvis Other: Right back wound healing very well clean dry and intact Assessment & Plan Assessment & Plan (1) Status post excision of skin lesion, follow-up exam: Code(s): Z09 - Encounter for follow-up examination after completed treatment for conditions other than malignant neoplasm Plan Patient has been given local wound instructions, and will follow-up p.r.n.. All questions answered. Coding Level of Care Code Global (15714) Diagnoses Status post excision of skin lesion, follow-up exam Z09
[2023-07-15 13:01] VITALS: BP 151/96; PULSE 111; BMI 51.6
== END 2023-07-15 13:05 | disposition home or self-care (01) ==
PROVIDERS: PCP Internal Medicine; Visit Provider Surgery
DX: Z09 Encounter for follow-up examination after completed treatment for conditions other than malignant neoplasm (principal)
CPT/HCPCS: 99024

== ENCOUNTER → 2023-07-15 12:51 | Outpatient (BNVA) | payer MEDICAID, SELFPAY | PROVIDERS: PCP Internal Medicine; Visit Provider Surgery | DX: Z09 Encounter for follow-up examination after completed treatment for conditions other than malignant neoplasm (principal); Z87.2 Personal history of diseases of the skin and subcutaneous tissue | CPT/HCPCS: 99212 ==

== ENCOUNTER 2024-02-13 14:36 | Outpatient (REF) | payer MEDICAID, SELFPAY ==
[2024-02-14 08:23] LABS: Syphilis Screen Nonreactive (Nonreactive)
[2024-02-14 08:32] LABS: ~HepC Num1 0.18 S/CO (0.00-0.79); ~Hepatitis C Antibody Nonreactive (Nonreactive)
[2024-02-14 14:08] LABS: HIV RNA PCR Qn Copies NOT DETECTED copies/mL (NOT DETECTED); HIV RNA PCR Qn Log Copies NOT DETECTED (NOT DETECTED)
== END 2024-02-13 14:37 | disposition home or self-care (01) ==
LOC: HO.CHCLDS 14:36
PROVIDERS: Visit Provider Internal Medicine
DX: Z11.3 Encounter for screening for infections with a predominantly sexual mode of transmission (principal)
CPT/HCPCS: 36415; 86780; 86803; 87536

== ENCOUNTER 2024-09-21 06:05 | Emergency (ER) | payer MEDICAID, SELFPAY ==
[2024-09-21 06:11] VITALS: BP 220/140; PULSE 93; O2SAT 99; BMI 52.5
[2024-09-21 06:25] VITALS: BP 124/76; PULSE 82; RESP 18; TEMP 36.5; O2SAT 95
--- NOTE | 2024-09-21 06:33 | PC.NURSE ---
pt talking on phone with friend. expresses he was nervous to call 911 but was concerned about his panic attack symptoms (SOB, anxiety). he believes his occasional migraines are due to anxiety, prolonged karl sessions, and poor sleep schedule. he emphasizes that he has had these headaches in the past and has done very well over last few months but has gotten them on several occasions recently, managing with tylenol. he states he has been concerned about his weight gain and sedentary lifestyle, states he wants to be more active, buy some blue-light glasses to possibly help the headaches. goes on to express concern about a previous HCP telling him he may have [place] related to his weight gain and may be causing his headaches. still denies SI/HI explicitly stating he does not want to /is afraid to /has family to live for.
--- NOTE | 2024-09-21 06:34 | MHC.EDTECH ---
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
--- NOTE | 2024-09-21 06:51 | ED.PSYCH ---
HPI - Psych General Chief Complaint: Psychiatric Symptoms Stated Complaint: panic attack Time Seen by Provider: 09/21/24 06:49 Source: patient Mode of arrival: EMS Limitations: no limitations History of Present Illness ED Provider: HPI Narrative: Patient's history of anxiety and hypotension feels very anxious last night woke up at 05:30 having a panic attack worried about the blood pressure had headache felt his blood pressure was elevated EMS recorded elevated blood pressure but on arrival patient's blood pressure was 124/76 feel relax and calmer Related Data Home Medications ?Medication ?Instructions ?Recorded ?Confirmed lisinopril 20 mg tablet 20 mg PO BID 05/22/21 05/22/21 lisinopril 20 1 tab PO DAILY 05/22/21 05/22/21 mg-hydrochlorothiazide 12.5 mg tablet sertraline 100 mg tablet 100 mg PO DAILY 05/22/21 05/22/21 Allergies Allergy/AdvReac Type Severity Reaction Status Date / Time dapagliflozin [From [facility]] AdvReac Mild itchy Verified 09/21/24 06:14 bumps on ears Review of Systems Review of Systems: Yes all other systems are reviewed and are negative [facility] Past Medical History Medical History Umbilical discharge Hypertension Morbid obesity Surgical History Hx of surgical procedure (07/03/23) No pertinent past surgical history Family History Family History Paternal Grandfather Prostate cancer Colon cancer Colon polyps Social History Social History Alcohol intake: never Patient Tobacco Use Status: Never used Tobacco Advance Directives: No Advance Directives Information Provided: No Do you have a plan to hurt others: No Plan Physical Exam Vital Signs: Vital Signs: Last Vital Signs Temp 97.7 F 09/21/24 06:25 Pulse 82 09/21/24 06:25 Resp 18 09/21/24 06:25 BP 124/76 09/21/24 06:25 Pulse Ox 95 09/21/24 06:25 O2 Del Method Room Air 09/21/24 06:25 BMI result Body Mass Index 52.5 Appearance: Alert. Oriented X3. No acute distress. Eyes: PERRLA, No Nystagmus ENT: Pharynx normal. Oral Mucosa moist Neck: Normal inspection. Neck supple. CVS: Normal heart rate and rhythm. Pulses normal. Respiratory: No respiratory distress. Equal air entry bilateral, no wheezing/rales/rhonchi Abdomen: Soft and nontender. Bowel sounds are present, no mass palpable, no CVA tenderness Skin: Skin warm and dry. Normal skin color. Normal skin turgor. Extremities: No lower extremity edema. No calf tenderness psych; patient feels, calm cooperative denies any significant depression no suicidal ideation Neuro: Oriented X 3. No motor deficit. No sensory deficit.No cerebellar signs , cranial nerves II-XII intact Medical Decision Making Medical Decision Making MDM Narrative: Patient came with panic attack felt much better after arrival to the ED refusing any medications discharge patient home Discharge Plan Discharge Clinical Impression: Panic anxiety syndrome Patient Disposition: Home, Self-Care Instructions: Panic Attack (ED) Additional Instructions: Take medication for anxiety as prescribed and follow up with your psychiatrist and therapist Prescriptions: No Action lisinopril-hydrochlorothiazide 20-12.5 mg tablet 1 tab PO DAILY sertraline 100 mg tablet 100 mg PO DAILY lisinopril 20 mg tablet 20 mg PO BID Print Language: Taiwanese
[2024-09-21 07:03] VITALS: BP 124/76; PULSE 82; RESP 18; TEMP 36.5; O2SAT 95
--- NOTE | 2024-09-21 07:10 | PC.NURSE ---
this nurse spoke to pt at bedside for 5-10 mins about goals for future/making small changes to routine/eating better all while continuing to take prescriptions and see therapist. pt states he is happier now and is hopeful, more encouraged now after talking to us here. provided with numerous counseling resources/behavioral health. accepted with gratitude
== END 2024-09-21 07:13 | disposition home or self-care (01) ==
PROVIDERS: Emergency Provider Internal Medicine; PCP Internal Medicine
DX: F41.0 Panic disorder [episodic paroxysmal anxiety] (principal); F41.9 Anxiety disorder, unspecified; R51.9 Headache, unspecified
CPT/HCPCS: 99283; 99284